=== PATIENT | female | born 2000 | race Caucasian/White ===

== ENCOUNTER → 2021-08-07 | Emergency (ER) | payer OTHER ==
[~2021-08-07] VITALS: Ht 162.6 cm; Wt 54.4 kg
== END | disposition left against medical advice (07) ==
LOC: ER 12:23
DX: S93.402A Sprain of unspecified ligament of left ankle, initial encounter (principal); X50.9XXA Other and unspecified overexertion or strenuous movements or postures, initial encounter; Y93.89 Activity, other specified; Y92.89 Other specified places as the place of occurrence of the external cause; Y99.8 Other external cause status